=== PATIENT | female | born 1970 | race Caucasian/White ===

== ENCOUNTER 2018-02-12 06:10 | Observation (INO) | payer OTHER, SELFPAY ==
[2018-02-12] MEDS ORDERED: Nitroglycerin 2% Ointment 1 INCH/1 GM Packet ONE (06:28)
[2018-02-12 06:33] LABS: #Basophils 0.2 thou/uL (0.0-0.2); #Eosinphils 0.7 thou/uL (0.0-0.7); #Lymphocytes 4.9 thou/uL (1.20-3.40); #Monocytes 0.9 thou/uL (0.11-0.59); %Basophils 1.3 % (0.0-1.0); %Neutrophils 54.7 % (42.0-75.0); Hemoglobin 14.7 g/dL (12.0-16.0); Mean Corpuscular HGB CONC 32.3 g/dL (32.0-36.0); Mean Corpuscular Hemoglobin 28.9 pg (27.0-31.0); Mean Corpuscular Volume 89.5 fL (78.0-98.0); Mean Platelet Volume 6.7 fL (7.4-10.4); Platelet Count 406 thou/uL (130-400); RBC Distribution Width 13.3 % (11.5-14.5); Red Blood Cell (RBC) Count 5.08 mill/uL (4.20-5.40); White Blood Cell (WBC) Count 14.7 thou/uL (4.8-10.8)
[2018-02-12 06:48] LABS: ALT (SGPT) 14 U/L (8-55); AST (SGOT) 15 U/L (5-34); Alkaline Phosphatase 81 U/L (40-150); Anion Gap 16 mmol/L (10-20); BUN (Urea Nitrogen) 16 mg/dL (7.0-18.7); Bilirubin, Total 0.2 mg/dL (0.2-1.2); CK (CPK) 40 U/L (29-168); Calc. Creatinine Clearance 0 mL/min (70-130); Calcium 9.1 mg/dL (7.8-10.44); Carbon Dioxide 24 mmol/L (22-29); Chloride 102 mmol/L (98-107); Estimated GFR-MDRD 64; Globulin 3.7 g/dL (2.4-3.5); Glucose 157 mg/dL (70-105); Lipase 30 U/L (8-78); Magnesium 2.1 mg/dL (1.6-2.6); Protein, Total 7.7 g/dL (6.0-8.3); Sodium 138 mmol/L (136-145)
[2018-02-12 06:52] LABS: Troponin I 0.047 ng/mL (< 0.028)
[2018-02-12] MEDS ORDERED: Labetalol HCl 100 MG/20 ML VIAL ONE (07:05)
--- NOTE | 2018-02-12 07:42 | CT ---
CT ANGIOGRAM OF THE CHEST: HISTORY: Chest pain. COMPARISON: None. TECHNIQUE: CT angiogram of the chest is performed in the axial plane. Three-dimensional reformatted images are submitted for interpretation. FINDINGS: Adequate contrast opacification of the pulmonary arterial system to the level of the segmental arteri es. No filling defect to suggest thromboembolism. No mediastinal mass, lymphadenopathy, or hematoma. Heart size is within normal limits. No pericardi al effusion. Visualized aorta has a normal caliber. Trachea and central bronchi are apparent. No consolidation or masses. No pleural effusion or pneumo thorax. An 8 mm hypodensity in the spleen is too small to characterize. IMPRESSION: No evidence of pulmonary artery embolism to the level of the segmental artery. POS: DI
[2018-02-12 09:43] LABS: Troponin I 0.048 ng/mL (< 0.028)
[2018-02-12] MEDS ORDERED: Sodium Chloride 0.65% Nasal 44 ML BOT EA NARE PRN (10:27)
[2018-02-12] MEDS ORDERED: Dextrose 50% Abboject 50 ML SYRINGE SLOW IVP PRN (10:27)
[2018-02-12] MEDS ORDERED: Eucerin (Mineral Oil/Petrolatum,White) 30 gm Jar TOP PRN (10:27)
[2018-02-12] MEDS ORDERED: Dextrose 5% in Water 1,000 ML IV PRN (10:27)
[2018-02-12] MEDS ORDERED: Albuterol Sulfate 2.5 mg/3 ml Neb NEB PRN (10:27)
[2018-02-12] MEDS ORDERED: Acetaminophen 325 MG TAB PO PRN (10:27)
[2018-02-12] MEDS ORDERED: Zolpidem Tartrate 5 MG TAB PO PRN (10:27)
[2018-02-12] MEDS ORDERED: Ondansetron HCl/PF 4 MG/2 ML Vial IVP PRN (10:27)
[2018-02-12] MEDS ORDERED: Ondansetron ODT 4 MG TAB PO PRN (10:27)
[2018-02-12] MEDS ORDERED: HumaLOG 300 UNITS/3 ML VIAL SC PRN ×2 (10:27)
[2018-02-12] MEDS ORDERED: Chloraseptic Spray 180 ml Bottle PO PRN (10:27)
[2018-02-12] MEDS ORDERED: Famotidine 20 MG TAB PO SCH ×2 (10:27→21:00)
[2018-02-12] MEDS ORDERED: Artificial Tears 18 DROP/0.9 ML EA EYE PRN (10:27)
[2018-02-12] MEDS ORDERED: hydrALAZINE 20 MG/ML VIAL SLOW IVP PRN (10:27)
[2018-02-12] MEDS ORDERED: HYDROcodone/Acetaminophen 5/325 mg Tablet PO PRN (10:27)
[2018-02-12] MEDS ORDERED: Senokot 8.6 MG TAB PO PRN (10:27)
[2018-02-12] MEDS ORDERED: Loperamide HCl 2 MG CAP PO PRN (10:27)
[2018-02-12] MEDS ORDERED: Milk Of Magnesia 30 ML UDCUP PO PRN (10:27)
[2018-02-12] MEDS ORDERED: Mag-Al 1200 mg/1200 mg/30 ML UDCUP PO PRN (10:27)
[2018-02-12] MEDS ORDERED: Nitroglycerin 0.4 MG TAB (25 Tab Bottle) SL PRN (10:27)
[2018-02-12] MEDS ORDERED: Torsemide 20 MG TAB PO SCH (10:45)
[2018-02-12 10:55] VITALS: BMI 44.4
--- NOTE | 2018-02-12 10:58 | HP ---
PRIMARY CARE PHYSICIAN: Alfonso Aj D.O. REASON FOR ADMISSION: Chest pain. HISTORY OF PRESENT ILLNESS: A 47-year-old female who has underlying history of chronic systolic heart failure and cardiomyopathy with AICD in place, who came to emergency room with a complaint of chest pain. Patient reports that she woke up during nighttime with a Charley horse type of muscle pain in her neck. Subsequently, she was experiencing pain behind her shoulder blade as well as entire left upper extremity. She was feeling pressure sensation in chest area. She was feeling nausea and shortness of breath. She also had 1 time bowel movement which was loose. She was worried about heart attack and that is why she decided to come to emergency room for evaluation. The patient reports that she is also getting intermittently chest pain on the left side which is variable in intensity, duration, and no specific aggravating or relieving factor. The patient feels as if sometimes defibrillator shocked. She never had any palpitation, dizziness or syncope. She denies any orthopnea, PND or leg swelling. Patient reports that she was following Cardiology, but her tax commissioner moved to different hospital and since then she is no longer following Cardiology, but she is following [facility]. Patient denies any UTI symptoms. She denies any constipation, melena, hematochezia. She denies any fever or chills. She denies any cough or upper respiratory or lower respiratory symptoms. When she came to the emergency room, her blood pressure was 217/135. In the emergency room, CT angio dissection protocol was done which was negative for dissection as well as pulmonary embolism. Her troponin was slightly elevated. When I saw this patient in the emergency room, she was pain free. REVIEW OF SYSTEMS: The following complete review of systems was negative, unless otherwise mentioned in the HPI or below: Constitutional: Weight loss or gain, ability to conduct usual activities. Skin: Rash, itching. Eyes: Double vision, pain. ENT/Mouth: Nose bleeding, neck stiffness, pain, tenderness. Cardiovascular: Palpitations, dyspnea on exertion, orthopnea. Respiratory: Shortness of breath, wheezing, cough, hemoptysis, fever or night sweats. Gastrointestinal: Poor appetite, abdominal pain, heartburn, nausea, vomiting, constipation, or diarrhea. Genitourinary: Urgency, frequency, dysuria, nocturia. Musculoskeletal: Pain, swelling. Neurologic/Psychiatric: Anxiety, depression. Allergy/Immunologic: Skin rash, bleeding tendency. Please see my HPI for pertinent positive and negative. All other review of systems reviewed and negative except as mentioned in the HPI. ALLERGIES: LISINOPRIL and SULFA DRUGS. CURRENT HOME MEDICATIONS: Levothyroxine 200 mcg p.o. daily, levothyroxine 50 mcg p.o. daily, Coreg 25 mg twice daily, potassium chloride one tablet daily, Singulair 10 mg daily, aspirin 81 mg p.o. daily, metformin 500 mg p.o. b.i.d., aldactone 25 mg p.o. daily, torsemide 20 mg p.o. daily, Entresto two tablets twice daily, Zoloft 200 mg p.o. daily. PAST MEDICAL HISTORY: Chronic systolic heart failure with defibrillator, nonischemic cardiomyopathy, hypertension, obesity, Graves disease, history of thyroid irradiation and subsequently iatrogenic hypothyroidism, history of myocardial infarction in 2008 , dyslipidemia, mild intermittent asthma, borderline diabetes. PAST SURGICAL HISTORY: Pacemaker/defibrillator placement, thyroidectomy, radioiodine therapy, bladder suspension, sinus surgery, laparoscopic surgery of ovary, hysterectomy. Cardiac catheterization in 2007 showed normal coronaries. PAST PSYCHIATRIC HISTORY: Anxiety and depression. SOCIAL HISTORY: Patient is smoking about 5 cigarettes on a daily basis. She drinks alcohol socially every week. She denies any other illicit drug abuse. FAMILY HISTORY: Positive for heart disease. No strong family history of cancer or stroke. Father of [place] by age of 56. Mother had kidney cancer. EMERGENCY ROOM COURSE: Patient has received labetalol 20 mg IV push, aspirin 324 mg, nitropatch. PHYSICAL EXAMINATION: VITAL SIGNS: On arrival, blood pressure 217/135, pulse 82, subsequently blood pressure 185/110, respiratory rate 16, temperature 97.9, saturation 99% on room air, weight 124.7 kilograms. GENERAL: Patient is currently alert, awake, hypertensive, no obvious acute distress. HEENT: Normocephalic, atraumatic. Eyes: Pupils round, reactive to light. Extraocular muscle intact. ENT: Oropharynx within normal limits. Moist mucous membranes, no oral lesion, no pharyngeal erythema, no exudate. NECK: Supple, no JVD, no thyromegaly, no carotid bruit, no jugular venous distention. LUNGS: Clear to auscultation without any rhonchi or rales. CARDIAC: S1, S2 regular. No murmur, no gallop, no rub. ABDOMEN: Obesity present. Bowel sounds present, nontender, nondistended. No organomegaly, no mass, no suprapubic tenderness. BACK: Unremarkable, no CVA tenderness. EXTREMITIES: Upper extremity passive movement of all joints are normal. Lower extremities: No edema. Good distal pulsation, no calf tenderness. SKIN: No skin rash. HEMATOLOGICAL: No lymphadenopathy. PSYCHIATRIC: Normal affect. SIGNIFICANT LABORATORY DATA: EKG showing pacemaker rhythm. CT angiography negative for pulmonary embolism. CT angio negative for any pulmonary embolism. CBC: WBC 14.7, hemoglobin 14.7, and platelet 406. Sodium 138, potassium 4.0, chloride 102, carbon dioxide 24, BUN 16, creatinine 0.94, glucose 157, calcium 9.1, magnesium 2.1. LFT: AST 15 , ALT 14, alkaline phosphatase 51, albumin 4.0, lipase 30. CK 40, CK-MB 1.0. Troponin 0.047. BNP less than 10. ASSESSMENT AND PLAN: 1. Chest pain. Patient's chest pain description is atypical. She has elevated troponin which is likely related with demand ischemia from uncontrolled hypertension on admission. Currently, patient is chest pain free. Her EKG is nondiagnostic. At this point, we will keep this patient on telemetry floor. We have ruled out dissection and pulmonary embolism with CT angiography. The patient will need serial cardiac enzyme monitoring. If troponin remains stable or downward trend, then we will consider doing pharmacological stress test for further evaluation. We will obtain echocardiography to assess ejection fraction and other structural abnormality. Meanwhile, we will continue with the nitropatch q.8 hourly, aspirin 81 mg p.o. daily. We will hold on Coreg because of we are planning to do stress test. We will monitor on telemetry floor. 2. Elevated troponin, indeterminant range, most likely related with demand ischemia from high blood pressure on admission. 3. Chronic systolic heart failure. The patient is euvolemic. The patient has underlying history of nonischemic cardiomyopathy and she has AICD in place. The patient is following [facility] outpatient basis. We will continue Entresto, aldactone, torsemide as per home dosage. We will obtain echocardiography to assess ejection fraction and other structural abnormality. 4. Hypothyroidism, iatrogenic after treatment for Graves disease. Continue levothyroxine 200 mcg p.o. daily and Cytomel 50 mcg p.o. daily, check TSH. 5. Mild intermittent asthma. Continue Singulair 10 mg p.o. daily and Ventolin nebulization q.6 hourly p.r.n. 6. Anxiety and depression. Continue Zoloft 200 mg p.o. daily. 7. Morbid obesity. Dietary education given, weight loss education given. Healthy lifestyle measures discussed with the patient. 8. Hypertensive urgency. Currently well controlled. We will continue with the nitropatch q.8 hourly along with the patient's blood pressure medication. 9. Deep venous thrombosis prophylaxis not needed because we are expecting discharge in 24 hours. Gastrointestinal prophylaxis, Pepcid 20 mg p.o. b.i.d. History of AICD pacemaker in place. The patient is feeling intermittent shock- like sensation and that is why we will do AICD interrogation. DISPOSITION: Plan based on clinical course. We are expecting patient's stay in hospital 24 hours, the patient has elevated leukocytosis and that is why we will check urinalysis as well. Plan of care extensively discussed with the patient in detail. JOAQUIND
[2018-02-12] MEDS ORDERED: Liothyronine Sodium 25 MCG TAB PO SCH (11:00)
[2018-02-12] MEDS ORDERED: Sacubitril 49 MG/Valsartan 51 MG TABLET PO SCH (11:00)
[2018-02-12] MEDS ORDERED: ISOVUE-370 76%-LOCM 1 ML ONE (11:10)
[2018-02-12 11:22] LABS: Cardiac Risk 5.7 (Less than 4.5)
[2018-02-12 12:56] LABS: Troponin I 0.042 ng/mL (< 0.028)
[2018-02-12] MEDS ORDERED: Nitroglycerin 2% Ointment 1 INCH/1 GM Packet TOP SCH (14:00)
[2018-02-12 15:38] VITALS: TEMP 97.5
[2018-02-12 17:21] VITALS: BP 168/83
--- NOTE | 2018-02-12 18:28 | CON ---
DATE OF CONSULTATION: 02/12/2018 REASON FOR CONSULTATION: Chest pain. HISTORY OF PRESENT ILLNESS: Mrs. Perdue is a very pleasant 47-year-old white female who comes to the hospital for chest pain. She actually did not have any chest pain. She was at home, got woken up by severe neck spasm on the left side. The pain was on the base of her skull and went from there to her upper back and then into her left arm and she felt some tingling of her left arm. She got worried as she knows that in the past, she has been told that a heart attack can happen with pain on the left arm, so she decided to come in for evaluation. On initial evaluation, her blood pressure was in the 200s/150s range. She was admitted, treated for pain and for blood pressure. She is feeling much better now. She also tells me that when she woke up she had a lot of diarrhea. She now tells me that her youngest daughter is having a lot of diarrhea as well, so she thinks she might have caught something. PAST MEDICAL HISTORY: 1. Nonischemic cardiomyopathy with an EF of 20%-25% in the past. The last echo was back in 04/2016 and she had an EF at that time of 60%, normalized. She has been followed up with Dr. Rivera in the past, but since he left, she has only been seen Elsa at the heart failure clinic. 2. Hypothyroidism. 3. Hypertension. 4. Type 2 diabetes. 5. Graves disease. 7. Hyperlipidemia. 8. Mild intermittent asthma. PAST SURGICAL HISTORY: 1. Pacemaker/AICD placement. 2. Thyroidectomy. 3. Radioiodine therapy. 4. Bladder suspension. 5. Sinus surgery. 6. Laparoscopic surgery of ovaries. 7. Hysterectomy. 8. Cardiac catheterization, 2007 showing normal coronaries. SOCIAL HISTORY: Smokes about 5 cigarettes a day, drinks alcohol only socially once a week. No drug use. FAMILY HISTORY: Father of an PA at age 56. Mother with kidney malignancy. REVIEW OF SYSTEMS: Twelve point review of system is done, it is all negative unless stated in the history of present illness. OUTPATIENT MEDICATIONS: Include; 1. Levothyroxine 250 mcg a day. 2. Coreg 25 mg twice a day. 3. Singulair. 4. Aspirin 81 a day. 5. Metformin 500 mg b.i.d. 6. Aldactone 25 mg daily. 7. Torsemide 20 mg b.i.d. 8. Entresto twice a day. 9. Zoloft. ALLERGIES: LISINOPRIL and SULFA DRUGS. PHYSICAL EXAMINATION: VITAL SIGNS: Temperature 97.5, pulse 74, respiration rate 12, satting 96% on room air, blood pressure 188/98. GENERAL: Awake, alert, and oriented x3, in no distress. HEENT: Normocephalic, atraumatic. NECK: Supple. LUNGS: Lungs are clear. CARDIOVASCULAR: S1, S2, no S3, S4, no murmurs. ABDOMEN: Soft, positive bowel sounds. EXTREMITIES: No edema. SKIN: Warm and dry. LABORATORY WORK: Reviewed. CBC with a white count of 14, hemoglobin 14, hematocrit 45, platelet count of 406. Chemistries were unremarkable except for glucose of 157. Her troponin was 0.04, 0.04 and then 0.04. BNP was undetectable. Triglycerides of 197, cholesterol 267, LDL of 181, HDL of 47. The TSH was extremely high at 43.9, lipase was 30. EKG was reviewed. Imaging was reviewed. ASSESSMENT: 1. Hypertensive emergency. 2. Neck spasm. 3. History of nonischemic cardiomyopathy with normalized ejection fraction. 4. Noncompliance. 5. Severe hypothyroidism. PLAN: 1. I suspect a lot of her problems are related to noncompliance. Most likely her blood pressure has been skyrocketing recently and this is evidenced by the extremely high TSH level which would suggest that she has not been taking any of her thyroid medications. I reviewed her echocardiogram that was done earlier today and it showed normal EF with normal wall motion suggestive that this was not an acute coronary syndrome. Her symptoms are most likely related to hypertensive emergency. She is doing better now. I would restart on her home medications and have her follow up with me in 1 month and she already has an appointment with the [facility] in 2 weeks. 2. She should be okay for discharge today. She would like to go home as well. I told her that she might need a heart catheterization in the future and she tell me that she was not going to let us do on this time, I do think she needs one for now. Thank you for letting us participate in the care of your patient. We will sign off. Please call with any questions. NARENDRA
--- NOTE | 2018-02-12 18:36 | DIS ---
DATE OF ADMISSION: 02/12/2018 at 8:14 a.m. DATE OF DISCHARGE: 02/12/2018 at 6:00 p.m. PRIMARY CARE PHYSICIAN: Dr. Alfonso Aj. DISCHARGE DISPOSITION: Home. PRIMARY DISCHARGE DIAGNOSIS: Chest pain, ruled out acute coronary syndrome. SECONDARY DISCHARGE DIAGNOSES: Chronic systolic heart failure, nonischemic cardiomyopathy, tobacco a buse, chronic kidney disease stage 3, dyslipidemia, hypothyroidism, morbid obesity with BMI 44, mild intermittent asthma, anxiety, and depression. PRIMARY PROCEDURE/OPERATION: None. RADIOLOGICAL INVESTIGATION: CT angio negative for PE. Echocardiography showed ejection fraction 55% -60%, diastolic dysfunction. SIGNIFICANT LABORATORY DATA: Troponin was indeterminant range. LDL 181. TSH 43.92. DISCHARGE MEDICATIONS: Coreg 25 mg p.o. b.i.d., Cytomel 50 mcg p.o. daily, metformin 500 mg p.o. b.i .d., Singulair 10 mg p.o. at bedtime, potassium 1 tablet p.o. daily, Entresto one tablet p.o. daily, Zoloft 200 mg p.o. daily, Aldactone 25 mg p.o. daily, torsemide 20 mg p.o. daily, Ecotrin 81 mg p.o. daily, Synthroid 200 mcg p.o. daily, Ventolin HFA 2 puffs q.4 hourly p.r.n., Lipitor 40 mg p.o. at be dtime. CONTRAINDICATIONS: None. CODE STATUS: FULL CODE. INPATIENT CONSULTANTS: Dr. Robbins was consulted while in hospital. TEST RESULTS PENDING ON DISCHARGE: None. ALLERGIES: LISINOPRIL and SULFA DRUGS. DISCHARGE PLAN: Post hospital, the patient will follow up with primary care physician and cardiologi . [facility] COURSE: The patient was admitted for chest pain. Her chest pain description was atypical. Please see my HPI for further detail. There was initial plan for a stress test, but Dr. Robbins gifty mmended not to do stress test. He evaluated this patient, had echocardiography done which showed nor mal EF. She had indeterminate troponin which was related with high blood pressure on admission. The patient will continue her thyroid medication and I advised to follow up with primary care physician. I added Lipitor for her high cholesterol. Dietary instruction given. Healthy lifestyle measures d iscussed with the patient. The patient is admitted and discharged on the same day.
[2018-02-12] MEDS ORDERED: Montelukast Sodium 10 mg Tablet PO SCH (21:00)
[2018-02-13] MEDS ORDERED: Levothyroxine Sodium 100 MCG TAB PO SCH (06:00)
[2018-02-13] MEDS ORDERED: Spironolactone 25 MG TAB PO SCH (08:00)
[2018-02-13] MEDS ORDERED: Aspirin 81 mg Enteric Coated Tablet PO SCH (09:00)
[2018-02-13] MEDS ORDERED: Sacubitril 49 MG/Valsartan 51 MG TABLET PO SCH (09:00)
[2018-02-13] MEDS ORDERED: Torsemide 20 MG TAB PO SCH (09:00)
[2018-02-13] MEDS ORDERED: Liothyronine Sodium 25 MCG TAB PO SCH (09:00)
== END 2018-02-12 18:09 | disposition home or self-care (01) ==
LOC: ERS 06:10 → 2SW 08:14
PROVIDERS: ADMIT Internal Medicine; ATTEND Internal Medicine
DX: R07.89 Other chest pain (principal); I16.1 Hypertensive emergency; I13.0 Hypertensive heart and chronic kidney disease with heart failure and stage 1 through stage 4 chronic kidney disease, or unspecified chronic kidney disease; I50.22 Chronic systolic (congestive) heart failure; N18.3 Chronic kidney disease, stage 3 (moderate); E78.5 Hyperlipidemia, unspecified; E03.9 Hypothyroidism, unspecified; E66.01 Morbid (severe) obesity due to excess calories; J45.909 Unspecified asthma, uncomplicated; F41.8 Other specified anxiety disorders; E11.22 Type 2 diabetes mellitus with diabetic chronic kidney disease; F17.210 Nicotine dependence, cigarettes, uncomplicated; Z68.41 Body mass index [BMI] 40.0-44.9, adult; Z79.84 Long term (current) use of oral hypoglycemic drugs; Z79.899 Other long term (current) drug therapy; Z79.82 Long term (current) use of aspirin
CPT/HCPCS: 36415; 36416; 71275; 80053; 80061; 82553; 83690; 83735; 83880; 84443; 84484; 85025; 93005; 93306; 96374; G0378

== ENCOUNTER 2019-06-10 12:32 | Outpatient (CLI) | payer OTHER, SELFPAY | END 2019-06-10 12:33 | disposition home or self-care (01) | LOC: ULT 12:32 | PROVIDERS: ATTEND Internal Medicine | DX: I50.22 Chronic systolic (congestive) heart failure (principal); I08.1 Rheumatic disorders of both mitral and tricuspid valves | CPT/HCPCS: 93306 ==

== ENCOUNTER 2020-04-29 11:07 | Inpatient (IN) | payer SELFPAY ==
[2020-04-29 11:48] LABS: Actual Bicarbonate (HCO3a) 13.6 mEq/L (22-28); Analyzer IN Cardio ER; Base Excess (BEa) -15.5 mEq/L (-2.0 to +3.0); CO2 Tension 44.3 mmHg (35.0-45.0); Calcium, Ionized (arterial) 1.32 mmol/L (1.12-1.30); Hemoglobin (Hb) 14.1 g/dL (12.0-16.0); O2 Tension (PaO2), arterial 80.7 mmHg (80.0-100.0); Potassium - ABG Lab 4.11 mmol/L (3.70-5.30)
[2020-04-29 11:52] LABS: ALV-art Gradient 363.025 mmHg (0-20); Puncture Site RRA; pH, Arterial 7.11 (7.35-7.45)
[2020-04-29] MEDS ORDERED: niCARdipine 20MG In NaCl 20 MG/200 ML BAG ONE (11:56)
[2020-04-29 12:12] LABS: Hemoglobin 14.7 g/dL (12.0-16.0); Mean Corpuscular HGB CONC 31.4 g/dL (32.0-36.0); Mean Corpuscular Hemoglobin 30.6 pg (27.0-31.0); Mean Corpuscular Volume 97.5 fL (78.0-98.0); Mean Platelet Volume 7.2 fL (7.4-10.4); Platelet Count 181 thou/uL (130-400); RBC Distribution Width 12.8 % (11.5-14.5); Red Blood Cell (RBC) Count 4.83 mill/uL (4.20-5.40); White Blood Cell (WBC) Count 26.9 thou/uL (4.8-10.8)
[2020-04-29 12:13] LABS: Bilirubin Negative (Negative); Blood, Urine Trace (Negative); Clarity Clear (Clear); Glucose, Urine (Dipstick) 200 mg/dL (Negative); Ketone, Urine Negative (Negative); Leukocyte Negative Leu/uL (Negative); Nitrite Negative (Negative); Protein, Urine (Dipstick) 100 mg/dL (Neg-Trace); RBC/HPF 0-3 HPF (0-3); Specific Gravity, Urine 1.016 (1.002-1.036); Squamous Epithelial 0-3 HPF (0-3); Urobilinogen Normal mg/dL (Less than 2); pH, Urine 5.5 (5.0-9.0)
[2020-04-29 12:18] LABS: Bacteria/HPF 1+ HPF (None Seen)
[2020-04-29 12:18] LABS: ALT (SGPT) 44 U/L (8-55); AST (SGOT) 47 U/L (5-34); Albumin 3.4 g/dL (3.5-5.0); Alkaline Phosphatase 82 U/L (40-110); Anion Gap 27 mmol/L (10-20); BUN (Urea Nitrogen) 17 mg/dL (7.0-18.7); Bilirubin, Total 0.3 mg/dL (0.2-1.2); CK (CPK) 72 U/L (29-168); Calc. Creatinine Clearance 0 mL/min (70-130); Calcium 8.7 mg/dL (7.8-10.44); Carbon Dioxide 14 mmol/L (22-29); Chloride 98 mmol/L (98-107); Globulin 3.7 g/dL (2.4-3.5); Glucose 476 mg/dL (70-105); Lipase 51 U/L (8-78); Protein, Total 7.1 g/dL (6.0-8.3); Sodium 135 mmol/L (136-145)
[2020-04-29 12:20] LABS: Amphetamine Detected (NotDetected); Barbiturates Screen Not Detected (NotDetected); Benzodiazepine Screen Not Detected (NotDetected); Cocaine Metabolite Screen Not Detected (NotDetected); Medtox Control Line Valid? VALID (VALID); Medtox Reader # READER 4; Methadone Not Detected (NotDetected); Methamphetamine Detected (NotDetected); Opiate Screen Not Detected (NotDetected); Oxycodone Screen Not Detected (NotDetected); Phencyclidine (PCP) Not Detected (NotDetected); THC/Cannabinoid Screen Not Detected (NotDetected); Tricyclic Screen Not Detected (NotDetected)
[2020-04-29] MEDS ORDERED: EPINEPHrine 1 MG/ML AMP ONE (12:21)
[2020-04-29] MEDS ORDERED: EPINEPHrine 1 MG/10 ML Abboject SYRINGE ONE ×3 (12:21→13:25)
[2020-04-29 12:24] LABS: Band 13 % (5-11); Eosinophils 2 % (0-10); Lymphocytes 23 % (21-51); MDiff Complete? YES; Monocytes 3 % (0-10); Neutrophil 47 % (42-75); Platelet Morphology Comment Appears Adequate; Polychromasia SLIGHT = 2-3 cells (100X) (0-2/hpf); Reactive Lymphocytes 12 % (0-10)
[2020-04-29] MEDS ORDERED: Norepinephrine 8 MG/0.9% NS 250 ML ONE (12:36)
--- NOTE | 2020-04-29 12:57 | RAD ---
PORTABLE CHEST: HISTORY: CPR. COMPARISON: 06/22/2015. FINDINGS/IMPRESSION: ET tube and NG tube noted. Pacemaker and AICD leads again noted. Cardiomegaly with vascular congestion. No pneumothorax or consolidation. Hazy infiltrates not exclu ded but may be on the basis of congestion and edema. POS: AGW
[2020-04-29 13:04] LABS: Actual Bicarbonate (HCO3a) 17.3 mEq/L (22-28); Analyzer IN Cardio ER; Base Excess (BEa) -11.4 mEq/L (-2.0 to +3.0); Calcium, Ionized (arterial) 1.36 mmol/L (1.12-1.30); Hemoglobin (Hb) 16.3 g/dL (12.0-16.0); Potassium - ABG Lab 3.67 mmol/L (3.70-5.30); pH, Arterial 7.17 (7.35-7.45)
[2020-04-29 13:05] LABS: Puncture Site RRA
[2020-04-29] MEDS ORDERED: Calcium Chloride 1 GM/10 ML Abboject SYRINGE ONE (13:24)
[2020-04-29 13:33] LABS: SARS-CoV-2 NAA Rapid Test Not Detected (NotDetected)
[2020-04-29] MEDS ORDERED: Iopamidol-370 76% 500 ML 1 ML ONE (14:29)
[2020-04-29 14:32] LABS: INR-International Normal Ratio 1.3; Prothrombin Time 16.6 sec (12.0-14.7)
[2020-04-29 14:33] LABS: PTT 48.2 sec (22.9-36.1)
--- NOTE | 2020-04-29 14:34 | CT ---
EXAM: Brain CTWithout contrast: HISTORY: Found unresponsive, CPR performed COMPARISON: None FINDINGS: There is loss of english-white matter junction region bilaterally evidence for some diffuse edema intrac ranially. No focal mass or midline shift. Very extensive primarily subarachnoid hemorrhage. There is some minimal linear hemorrhage overlying t he right frontal lobe floor of the anterior cranial fossa probably subarachnoid in origin. Fluid and secretions in the posterior nasopharynx. Sinuses and mastoids are clear of acute process. IMPRESSION: Very extensive hemorrhage, primarily subarachnoid. There is some linear hemorrhage noted along the fl oor of the right anterior cranial fossa which could potentially not be subarachnoid. No significant mass effect or midline shift. Evidence for loss of english-white matter junction evidence for diffuse brain edema.
[2020-04-29] MEDS ORDERED: Acetaminophen 325 MG TAB PO PRN (14:43)
[2020-04-29] MEDS ORDERED: Sodium Chloride 0.9% 1,000 ML IV SCH ×2 (14:45→15:30)
[2020-04-29 15:24] LABS: Lactic Acid 9.9 mmol/L (0.5-2.2)
[2020-04-29] MEDS ORDERED: HumaLOG 300 UNITS/3 ML VIAL SC PRN (15:27)
[2020-04-29] MEDS ORDERED: Dextrose 50% Abboject 50 ML SYRINGE SLOW IVP PRN (15:27)
[2020-04-29] MEDS ORDERED: Dextrose 5% in Water 1,000 ML IV PRN (15:27)
[2020-04-29] MEDS ORDERED: Ventilator Sedation Protocol 1 EACH FS SCH (15:30)
[2020-04-29] MEDS ORDERED: niCARdipine 25 MG in Sodium Chloride 0.9% 250 ML 250 ML IVPB PRN (15:31)
--- NOTE | 2020-04-29 16:06 | CON ---
DATE OF CONSULTATION: 04/29/2020 CONSULTING PHYSICIAN: Charlieist . REASON FOR CONSULTATION: Acute respiratory failure related to cardiopulmonary arrest and subarachnoid hemorrhage. HISTORY OF THE PRESENT ILLNESS: History was obtained by talking with the patient's family - specifically with her mother and aunt, who are at the bedside. The patient apparently awoke early this morning and complained of not being able to sleep. She got into a disagreement with her daughter about dirty dishes. She then returned to bed and soon after called out because of acute headache, she then collapsed. She was intubated in the field by paramedics. When she presented to this facility, she was found to have a large subarachnoid hemorrhage with loss of english-white matter differentiation. I believe she had at least 2 periods of cardiac arrest, requiring CPR. PAST MEDICAL HISTORY: 1. Hypertension. 2. Hypothyroidism. 3. Nonischemic cardiomyopathy with EF of 20% to 25% back in 2018. 4. Diabetes mellitus, type 2. 5. Graves disease. 6. Hyperlipidemia. 7. Asthma. PAST SURGICAL HISTORY: 1. She has had an AICD and pacemaker placed. 2. Thyroidectomy. 3. Radioiodine ablated therapy. 4. Bladder suspension. 5. Sinus surgery. 6. Laparoscopic removal of her ovaries. 7. Hysterectomy. 8. Cardiac catheterization. SOCIAL HISTORY: Apparently, has a history of tobacco use. She has also drank alcohol in the past. FAMILY MEDICAL HISTORY: Remarkable for coronary artery disease. MEDICATIONS: Prior to admission, not available for review at this time. ALLERGIES: LISINOPRIL AND SULFA DRUGS. REVIEW OF SYSTEMS: Not obtainable because the patient is currently intubated on mechanical ventilation. PHYSICAL EXAMINATION: VITAL SIGNS: Temperature 96.4, blood pressure 114/81 on a Levophed drip with O2 saturation 100% on mechanical ventilation. Pulse 101. NEUROLOGICALLY: The patient is obtunded. Her pupils are 7 mm and nonreactive to light. She has no oculocephalic reflex. She has no gag reflex. She does not withdrawal with her arms, but does withdrawal very slightly with both feet. HEENT: Otherwise unremarkable except for an intubated patient. NECK: No adenopathy or JVD. LUNGS: Clear to auscultation. CARDIAC: S1, S2. Regular. ABDOMEN: Obese, soft, nontender. She has a left femoral central line. EXTREMITIES: No clubbing, cyanosis, or edema. LABORATORY DATA: White blood cell count 26.9, hematocrit 47, platelet count 181 with 47% neutrophils, 13% bands. INR is 1.3, PTT 48.2, D-dimer greater than 20. The pH 7.17, pCO2 of 49, PO2 of 55 on SIMV rate 20, tidal volume 450, PEEP 10, pressure support 10, FiO2 100%. Sodium 135, potassium 4, chloride 98, CO2 of 14, BUN 17, creatinine 1.4, glucose 476, lactate 12.5, troponin 0.64. Tox screen positive for amphetamines and methamphetamines. COVID-19 rapid test was negative. She has glucosuria and proteinuria. Her head CT shows a large subarachnoid hemorrhage. Chest x-ray demonstrates an AICD/pacemaker in the left upper quadrant. She has cardiomegaly. She has significant pulmonary edema. ASSESSMENT: 1. This is a 49-year-old female who experiences subarachnoid hemorrhage, resulting in cardiopulmonary arrest. While she is not technically brain , she certainly is close based on neurologic exam. 2. Severe metabolic acidosis - mainly lactic in nature. 3. Blood sugars, out of control. 4. Substance abuse. 5. Probable aspiration pneumonitis and given duration of CPR. RECOMMENDATIONS: Generalized supportive care. Neurosurgery has been consulted, but I do not think there is anything they could do in this situation. We will give the patient Levophed and IV fluids as needed to keep her blood pressure up. Her neurologic exam will be reassessed tomorrow. Code status was discussed with the family; apparently, the daughter needs time. Job ID: [id number]
[2020-04-29 16:51] VITALS: BMI 42.5
--- NOTE | 2020-04-29 16:56 | CT ---
EXAM: CT ANGIOGRAM OF THE HEAD AND NECK INDICATION: Patient with CPR in progress. Subarachnoid hemorrhage. COMPARISON: None TECHNIQUE: CT angiogram of the head and neck are performed in the axial plane. Three-dimensional refo rmatted images are submitted for interpretation. FINDINGS: CTA OF THE HEAD WITH AND WITHOUT CONTRAST: POSTCONTRAST CT OF BRAIN: Limited evaluation due to the presence of extensive subarachnoid hemorrhage. There does appear to be some loss of cortical english-white matter differentiation along with sulcal effacement implying global cerebral edema. No midline shift. Basilar cisterns are Postcontrast soft tissue neck CT: Aerodigestive tract:Limited evaluation due to the presence of nasogastric and endotracheal tube. Sinuses: Adequate aeration of the sinuses and mastoid air cells. Orbits: Bilateral ocular lenses are appropriately located. Both globes are intact. Retrobulbar fat is preserved. Symmetric attenuation the optic nerves and ocular rectus muscles. Salivary glands:Symmetric attenuation of the parotid and symmetrical glands Thyroid gland: Not appreciated. Correlate for previous surgery or treatment Lymph nodes: No evidence of lymphadenopathy by size criteria. Paraspinal muscles: There is abnormal air attenuation along the left supraspinatus muscles. Correlate clinically. Cervical spine:Vertebral body height is maintained. No fracture. No significant central canal stenosi s or significant neural foraminal narrowing. Limited evaluation by technique. Upper mediastinum and lung apices: Opacification of the visualized lung apices which may represent at electasis, aspiration or pneumonia. CTA OF THE NECK WITH CONTRAST: Aorta: Appropriate enhancement and luminal diameter. Right carotid artery: Appropriate enhancement and luminal diameter of the common carotid artery, stern tid bifurcation, proximal/mid internal card artery. There is abrupt caliber change with intimal wall thickening involving the distal cervical internal carotid artery. Left carotid: Appropriate enhancement and luminal diameter common carotid artery, carotid bifurcation , proximal/mid internal carotid artery. There is intimal wall thickening with possible intraluminal filling defect involving the distal cervical internal carotid artery. Subclavian arteries:Symmetric and patent Vertebral arteries:Patent throughout their course in the neck. Dominant right vertebral artery CTA OF THE BRAIN: Intracranial internal carotid arteries:Absence of contrast enhancement involving both petrous, cavern ous sinus, paraclinoid internal carotid arteries. Anterior circulation: No evidence of enhancement with regards to the anterior circulation Intracranial vertebral arteries: Absence of enhancement. Posterior circulation: Absence of enhancement in regards to the basilar artery and P1 segments IMPRESSION: 1. Absence of enhancement at the level of [place] which may in part be due to significant in tracranial pressure. There is loss of english-white matter differentiation and sulcal effacement implying extensive cerebral edema. 2. There is irregular intimal thickening involving the distal internal carotid arteries bilaterally. Correlate for possible bilateral carotid artery dissection. Possibility of a intraluminal thrombus in the distal left internal carotid artery cannot be entirely excluded. 3. Nonspecific subcutaneous emphysema involving the right supraspinatus muscle. Results study discussed with Sue patient's nurse 11 04/29/2020 4:46 PM Code CR
[2020-04-29] MEDS ORDERED: Lorazepam 2 MG/ML VIAL SLOW IVP PRN (17:00)
[2020-04-29] MEDS ORDERED: Fentanyl BOLUS 250 ML IVPB PRN (17:00)
[2020-04-29] MEDS ORDERED: Propofol BOLUS 1,000 MG/100 ML VIAL IV PRN (17:00)
[2020-04-29] MEDS ORDERED: Propofol 1,000 MG/100 ML VIAL IV PRN (17:00)
[2020-04-29] MEDS ORDERED: fentaNYL Citrate/PF 2,000 MCG in Sodium Chloride 0.9% 60 ML IV SCH (17:00)
[2020-04-29] MEDS ORDERED: DISCONTINUE PREVIOUS NARCOTIC PAIN MEDICATIONS AND BENZODIAZEPINES FS SCH (17:00)
[2020-04-29] MEDS ORDERED: Morphine 2 MG/ML VIAL SLOW IVP PRN (17:00)
[2020-04-29 17:09] LABS: Glucose 345 mg/dL (70-105)
--- NOTE | 2020-04-29 17:24 | HP ---
CONSULTATIONS ON THE CASE: 1. Dr. Evangelist Schmitz, Pulmonary Critical Care. 2. Dr. Jorge Henderson, Cardiology. 3. CHEPE Johnson, Neurosurgery. REASON FOR ADMISSION: Cardiac arrest and respiratory arrest. HISTORY OF PRESENT ILLNESS: This is a 49-year-old morbidly obese female, who was found unresponsive at home and 911 was called. She was intubated en route to the emergency room at [facility]. The patient on initial evaluation in the ER was unresponsive and asystole episode occurred during this process, where the patient had CPR resulting in revival of her pulse along with close monitoring. The patient eventually was revived with a pulse. At this point of time, Neurosurgery was consulted in regard to the patient's subarachnoid hemorrhage as reviewed on the CT of the head, which was done stat on admission. The patient does have extensive cardiac history, for which she takes medications at home along with having a pacemaker placement done in the remote past. The patient was apparently started on Levophed for maintenance of her blood pressure, and eventually, ICU admission was requested. I reviewed and evaluated the patient at bedside in the emergency room. The patient at this point of time is noncommunicative secondary to her intubated status, not on any sedation at this point of time, does have fixed dilated pupils. Hemodynamically, her heart rate is around 80 per minute, normal sinus rhythm, though it looked paced. Further review of the patient's diagnostics in the ER showed evidence of methamphetamines in the urine drug screen and further review with the patient's family does confirm that the patient does abuse methamphetamines, but unknowingly though. The patient does have extensive cardiac history as mentioned above, though with complaints on medications according to the patient's family members. History has been obtained from the patient's daughters as well as family friend. An echocardiogram done in May 2019 shows evidence of 50% to 60% ejection fraction. The patient, per previous records, has history of chronic systolic heart failure with cardiomyopathy, but according to the patient's family members, she has a pacemaker in place. Past medical history includes hypothyroidism, morbid obesity, uncontrolled blood pressure. No other significant history has been noted with the patient's family members except that she was found unresponsive at home brought into the emergency room at [facility]. PAST MEDICAL HISTORY: 1. Hypothyroidism. 2. Morbid obesity. 3. History of cardiomyopathy. 4. History of coronary artery disease. 5. Methamphetamine drug abuse. 6. Chronic systolic congestive heart failure with a defibrillator. 7. Nonischemic cardiomyopathy. 8. Benign essential hypertension. 9. History of Graves disease. 10. Thyroid radiation with eventual iatrogenic hypothyroidism. 11. History of myocardial infarction in 2008. 12. Dyslipidemia. 13. Bronchial asthma. PAST SURGICAL HISTORY: 1. History of pacemaker defibrillator placement. 2. Thyroidectomy. 3. Radioiodine therapy. 4. Bladder suspension surgery. 5. History of sinus surgery. 6. History of laparoscopic surgery of ovary and hysterectomy. 7. Cardiac cath in 2007 with normal coronaries. PAST PSYCHIATRIC HISTORY: Includes anxiety and depression. SOCIAL HISTORY: The patient smokes half a pack of cigarettes a day. Social drinking. Extensive drug abuse, methamphetamines have been suspected. FAMILY HISTORY: Strong family history of coronary artery disease without any premature incidents. Mother had kidney cancer. REVIEW OF SYSTEMS: Could not be done secondary to the patient's intubated status and noncommunicative situation. PHYSICAL EXAMINATION: GENERAL: This is a 49-year-old morbidly obese female, who is intubated, noncommunicative. VITAL SIGNS: Heart rate of 80 per minute, respiratory rate of 20 per minute, saturation of 98% with a FiO2 of 100% and a PEEP of 5. CVS: S1 and S2 paced. CHEST: Bilateral air entry present. Basilar rhonchi noted. ABDOMEN: Soft. Bowel sounds are present. EXTREMITIES: No cyanosis or edema noted. Other systems could not be examined secondary to the patient's status of intubation. DIAGNOSTICS: PT is 16.6, INR is 1.3, PTT is 48.2. ABG; pH 7.17, pCO2 is 55, PO2 is 82. Lactic acid is 12.5. Troponin is 0.064. Urinalysis has been reviewed. Drug screen shows evidence of methamphetamine is detected. SARS-CoV-2 PCR RT negative. IMAGING STUDIES: CT of the brain, very extensive hemorrhage, primarily subarachnoid. There is some linear hemorrhage noted along the floor of the right anterior cranial foci, which could potentially not be subarachnoid. No significant mass effect or midline shift. Evidence for loss of english white matter junction. Evidence for diffuse brain edema noted. ASSESSMENT: 1. Acute hypoxemic respiratory failure with cardiac arrest, status post intubation during en route to the emergency room. 2. Extensive subarachnoid hemorrhage without any midline shift or herniation yet. 3. Coronary artery disease with history of nonischemic cardiomyopathy and history of automatic implantable cardioverter-defibrillator pacemaker placement. 4. Morbid obesity. 5. Methamphetamine drug abuse. 6. Benign essential hypertension. 7. Hypothyroidism with history of thyroidectomy for Graves disease. 8. Coronary artery disease with history of cardiac cath in 2007. PLAN: I discussed in detail of the diagnosis, treatment, and followup with the patient's family members. Educated and explained about the prognosis, which is very poor. I have consulted Neurosurgery, Cardiology, and Pulmonary Critical Care Services at this point of time, though prognosis at this point of time remains futile. I have re-educated the patient's family members in regard to the current hospitalization course and monitoring. Advanced directives currently are full code, but the patient might benefit in transitioning to palliative hospice care basing on prognosis. We will await official consultation and evaluation by Neurosurgery, Cardiology, and Pulmonary Critical Care in regard to more specifics. The whole Critical Care evaluation including review in the emergency room took me more than 50 minutes. Prognosis, very poor. Job ID: [id number]
--- NOTE | 2020-04-29 19:03 | CON ---
DATE OF CONSULTATION: 04/29/2020 HISTORY OF PRESENT ILLNESS: Ms. Perdue is a 49-year-old female who incidentally had an argument with her daughter this morning. She suffered a sudden onset of headache and neck pain, and her family noticed an altered mental status with the patient. On transport, EMS witnessed cardiac arrest at approximately 10:30 a.m. CPR was initiated at that time and the patient was intubated in the field using 125 mg of ketamine and [address] of the head showed a very extensive subarachnoid hemorrhage. There is no significant mass effect or midline shift. CTA of the head has been ordered but is pending. Her aunt was at bedside in the emergency room. REVIEW OF SYSTEMS: Noncontributory. MEDICATIONS: Unable to obtain. 1. Albuterol 90 mcg. 2. Carvedilol 25 mg. 3. Furosemide 40 mg. 4. Levothyroxine 200 mcg. 5. Metformin 500 mg. 6. Singulair 10 mg. 7. Potassium chloride 10 mEq. 8. Sertraline 100 mg. 9. Acetaminophen 500 mg. 10. Entresto 97/103 mg. 11. Lipitor 20 mg. ALLERGIES: LISINOPRIL, ANAPHYLAXIS; SULFA, ANAPHYLAXIS. SOCIAL HISTORY: Aunt tells me she is a smoker. She occasionally drinks alcohol. Methamphetamine was found in her urine in the emergency room. FAMILY: Mother, lung cancer, five years ago. Father, heart disease. Younger brother, [place]. Older brother, open heart. PAST MEDICAL HISTORY: Diabetes, hypertension, pacemaker, hyperlipidemia, hypothyroidism. PHYSICAL EXAMINATION: VITAL SIGNS: Blood pressure 118/78, heart rate 91, respiratory rate 28, and temperature 96.4. HEENT: Examination of head normal, atraumatic, and normocephalic. Eyes, pupils fixed and dilated, nonreactive to light. NEURO: The patient is nonresponsive. There is no corneal reflex. There was no eye movement. There are no paralytics to hinder the neuro exam. IMAGING: Head CT showed a very extensive subarachnoid hemorrhage. CTA of the head shows no flow of the contrast into the intracranial space, likely brain . LABORATORY DATA: WBC 26.9, RBC 4.83, hemoglobin 14.7, hematocrit 47, and platelets 181. PT 16.6, INR 1.3, PTT 48.2. Sodium 135. Toxicology, methamphetamines were detected. ASSESSMENT: 1. Subarachnoid hemorrhage. 2. Cardiac arrest. PLAN: The CTA showed no blood flow into the head at all. She is no longer alive. No neurosurgical intervention at this time. Job ID: [id number] MTDD
[2020-04-29] MEDS: Piperacillin/Tazobactam 3.375 GM in Sodium Chloride 0.9% 100 ML IVPB SCH ×2 (19:16→22:06)
[2020-04-29] MEDS: Sodium Chloride 0.9% 1,000 ML IV SCH (19:17)
[2020-04-29 20:34] LABS: Lactic Acid 3.4 mmol/L (0.5-2.2)
[2020-04-29 20:47] LABS: ALT (SGPT) 127 U/L (8-55); AST (SGOT) 130 U/L (5-34); Albumin 3.7 g/dL (3.5-5.0); Alkaline Phosphatase 75 U/L (40-110); Anion Gap 19 mmol/L (10-20); BUN (Urea Nitrogen) 26 mg/dL (7.0-18.7); Bilirubin, Total 0.5 mg/dL (0.2-1.2); Calc. Creatinine Clearance 88 mL/min (70-130); Calcium 10.2 mg/dL (7.8-10.44); Carbon Dioxide 23 mmol/L (22-29); Chloride 106 mmol/L (98-107); Globulin 3.6 g/dL (2.4-3.5); Glucose 150 mg/dL (70-105); Protein, Total 7.3 g/dL (6.0-8.3); Sodium 144 mmol/L (136-145)
[2020-04-29 20:50] LABS: Actual Bicarbonate (HCO3a) 24.1 mEq/L (22-28); Base Excess (BEa) 3.2 mEq/L (-2.0 to +3.0); CO2 Tension 27.7 mmHg (35.0-45.0); Calcium, Ionized (arterial) 1.27 mmol/L (1.12-1.30); Carboxyhemoglobin (COHb) 0.9 gm% (0.0-3.0); Potassium - ABG Lab 3.84 mmol/L (3.70-5.30)
[2020-04-29 20:53] LABS: pH, Arterial 7.56 (7.35-7.45)
[2020-04-29 20:54] LABS: Puncture Site RRA
[2020-04-29 20:56] LABS: ALV-art Gradient 192.575 mmHg (0-20)
[2020-04-29] MEDS ORDERED: Famotidine/PF 20 mg/2ml Vial SLOW IVP SCH (21:00)
[2020-04-30 01:02] LABS: Glucose 147 mg/dL (70-105)
[2020-04-30] MEDS: Norepinephrine 8 MG/0.9% NS 250 ML IVPB SCH ×2 (01:33→05:35)
[2020-04-30 04:46] LABS: ALT (SGPT) 111 U/L (8-55); AST (SGOT) 100 U/L (5-34); Albumin 3.6 g/dL (3.5-5.0); Alkaline Phosphatase 70 U/L (40-110); Anion Gap 18 mmol/L (10-20); BUN (Urea Nitrogen) 27 mg/dL (7.0-18.7); Bilirubin, Total 0.6 mg/dL (0.2-1.2); Calc. Creatinine Clearance 87 mL/min (70-130); Calcium 9.8 mg/dL (7.8-10.44); Carbon Dioxide 24 mmol/L (22-29); Chloride 112 mmol/L (98-107); Globulin 3.6 g/dL (2.4-3.5); Glucose 163 mg/dL (70-105); Protein, Total 7.2 g/dL (6.0-8.3); Sodium 150 mmol/L (136-145)
[2020-04-30 04:54] LABS: #Basophils 0.2 thou/uL (0.0-0.2); #Eosinphils 0.1 thou/uL (0.0-0.7); #Lymphocytes 5.2 thou/uL (1.20-3.40); #Monocytes 1.6 thou/uL (0.11-0.59); #Neutrophils 12.6 thou/uL (1.40-6.50); %Basophils 0.8 % (0.0-1.0); %Eosinophils 0.6 % (0.0-10.0); %Lymphocytes 26.7 % (21.0-51.0); %Monocytes 7.9 % (0.0-10.0); %Neutrophils 64.1 % (42.0-75.0); Hemoglobin 15.4 g/dL (12.0-16.0); Mean Corpuscular HGB CONC 32.5 g/dL (32.0-36.0); Mean Corpuscular Hemoglobin 29.8 pg (27.0-31.0); Mean Corpuscular Volume 91.9 fL (78.0-98.0); Mean Platelet Volume 6.9 fL (7.4-10.4); Platelet Count 287 thou/uL (130-400); RBC Distribution Width 12.8 % (11.5-14.5); Red Blood Cell (RBC) Count 5.18 mill/uL (4.20-5.40); White Blood Cell (WBC) Count 19.6 thou/uL (4.8-10.8)
[2020-04-30] MEDS: Piperacillin/Tazobactam 3.375 GM in Sodium Chloride 0.9% 100 ML IVPB SCH ×2 (05:09→13:07)
[2020-04-30] MEDS ORDERED: Sodium Chloride 0.45% 1,000 ML IV SCH (05:45)
[2020-04-30] MEDS: Sodium Chloride 0.9% 1,000 ML IV SCH (06:39)
[2020-04-30 07:54] VITALS: BP 124/83
[2020-04-30 07:57] LABS: Actual Bicarbonate (HCO3a) 23.2 mEq/L (22-28); Base Excess (BEa) 0.9 mEq/L (-2.0 to +3.0); CO2 Tension 31.1 mmHg (35.0-45.0); Calcium, Ionized (arterial) 1.24 mmol/L (1.12-1.30); Carboxyhemoglobin (COHb) 0.9 gm% (0.0-3.0); Hemoglobin (Hb) 15.5 g/dL (12.0-16.0); Potassium - ABG Lab 3.85 mmol/L (3.70-5.30); pH, Arterial 7.49 (7.35-7.45)
[2020-04-30 07:58] LABS: Puncture Site RRA
[2020-04-30 07:59] LABS: ALV-art Gradient 311.925 mmHg (0-20)
[2020-04-30 08:08] VITALS: TEMP 98.1
--- NOTE | 2020-04-30 08:36 | PRG ---
DATE OF SERVICE: 04/30/2020 TIME SPENT: 35 minutes of critical care time. SUBJECTIVE: The patient remains intubated on mechanical ventilation. OBJECTIVE: VITAL SIGNS: Temperature 98.1, pulse 92, blood pressure 117/70, O2 saturation 100%. 24-hour intake 1527, output 2300. I do not see any profound amounts of diuresis over the last 12 hours. NEUROLOGICAL: She has fixed pupils. No oculocephalic reflex. No gag reflex. Does not follow commands. She has no spontaneous respirations on the ventilator. She was placed in the apnea mode on the ventilator for 60 seconds and had no respirations. She does, however, have lower extremity withdrawal reflex, which could just be a spinal reflex. HEENT: Otherwise unremarkable. NECK: No JVD. LUNGS: Clear anteriorly. CARDIOVASCULAR: S1, S2, regular. ABDOMEN: Soft. No hepatosplenomegaly. EXTREMITIES: No edema. LABORATORY DATA: ABG; pH 7.49, pCO2 of 31, pO2 of 77, on SIMV rate 20, tidal volume 500, PEEP 6, pressure support 10, and FiO2 of 60%. White blood cell count 19.6, hematocrit 47.6, and platelet count 287. Sodium 150, potassium 4, chloride 112, CO2 of 24, BUN 27, creatinine 1.5, glucose 163, AST 100, ALT 111. Chest x-ray shows clearing of bilateral infiltrates. ASSESSMENT: 1. Status post subarachnoid hemorrhage. 2. Prolonged cardiopulmonary arrest with evidence of severe anoxic brain injury and possible brain . PLAN: 1. Nuclear perfusion brain scan today to further evaluate for brain . 2. I have adjusted mechanical ventilation settings. 3. She has been put on half-normal saline because of the hypernatremia. 4. Discussed with family member at bedside. Job ID: [id number]
[2020-04-30] MEDS ORDERED: FLU VACC QS2020-21(6MOS UP)/PF 60 MCG/0.5 ML SYRINGE IM ONE (09:00)
[2020-04-30] MEDS ORDERED: Prevnar 13-Val Conj/PF 0.5 ML SYRINGE IM ONE (09:00)
[2020-04-30 09:24] LABS: Glucose 147 mg/dL (70-105)
--- NOTE | 2020-04-30 09:42 | RAD ---
PORTABLE CHEST: HISTORY: Pneumonia and CCU followup. COMPARISON: 04/29/2020. FINDINGS/IMPRESSION: The bilateral infiltrates are again seen. The upper lung infiltrates are less dense today which may signify some interval improvement. ET tube and NG tube unchanged. Pacemaker leads unchanged. POS: AGW
--- NOTE | 2020-04-30 13:16 | NM ---
NUCLEAR MEDICINE BRAIN SCAN FOR CEREBRAL BLOOD FLOW STUDY: The patient was given 37 mCi of Ceretec IV. Dynamic imaging of the brain obtained with delayed stati c images in all 3 planes. INDICATION: Diffuse subarachnoid hemorrhage with loss of english-white junction and evidence of diffuse increased in tracranial pressure on CT exams. FINDINGS: There is no activity seen within the brain on dynamic or delayed sequences. There is no evidence of cerebral circulation identified. IMPRESSION: No evidence of cerebral or cerebellar circulation. Findings are consistent with brain by nucle ar medicine criteria. POS: ELISABETH
[2020-04-30 13:17] LABS: Glucose 134 mg/dL (70-105)
--- NOTE | 2020-04-30 18:26 | PDOC.DS.DS ---
Provider - Provider Date of Admission: 04/29/20 14:43 Date of Discharge: 04/30/20 Admitting Provider: Mario Joshua MD Consultations: Pulmonary, Other (Neurosurgery) Primary Care Physician: [facility] Course - Hospital Course Hospital Course: Patient was 49-year-old female with cardiomyopathy, coronary artery disease and morbid obesity was brought in by EMS with unresponsiveness. Patient was intubated by EMS. She was found unresponsive and in asystole requiring prolonged CPR. CT scan of the brain in the emergency room was consistent with extensive subarachnoid hemorrhage with loss of english-white matter junction with diffuse brain edema. Patient was also started on pressors. Please refer to the history and physical for further details. The patient was admitted to the intensive care unit with above diagnosis. She continued to have fixed pupils without oculocephalic reflex or gag reflex. She was not following commands. There was no spontaneous respiration on the ventilator. She underwent nuclear perfusion scan that was consistent with brain . Patient was transferred for organ donation. Family was updated. Final diagnosis: Subarachnoid hemorrhage Prolonged cardiopulmonary arrest requiring mechanical ventilation and CPR Hypotension requiring pressors Lactic acidosis due to hypoperfusion Type II myocardial infarctionPOA NAMITA on CKD stage IIPOA Abnormal LFTs due to cardiac arrest Severe anoxic brain injury/brain Chronic systolic heart failure status post AICD due to nonischemic cardiomyopathy Coronary artery disease Morbid obesity with a BMI 42.7 Hypertension Hypothyroidism Dyslipidemia Methamphetamine abuse Resuscitation Status: 04/29/20 17:50 Resuscitation Status Routine Resuscitation Status: DNAR: NO Resuscitation Discussed with: Sami Montemayor (daughter) at bedside. - Labs Lab Results: 04/30/20 03:47 04/30/20 12:54 Abnormal Lab Results - Last 48 hrs 04/29/20 11:10: Sodium 135 L, Carbon Dioxide 14 L, Anion Gap 27 H, Creatinine 1.48 H, AST 47 H, Albumin 3.4 L, Globulin 3.7 H, Albumin/Globulin Ratio 0.9 L 04/29/20 11:10: WBC 26.9 H, MCHC 31.4 L, MPV 7.2 L, Band Neuts % (Manual) 13 H, Reactive Lymphs % 12 H 04/29/20 11:40: Bicarbonate Actual 13.6 L, ABG pH 7.11 L*, ABG O2 Sat (Measured) 91.2 L, ABG O2 Content 17.9 L, ABG Base Excess -15.5 L, ABG Oxyhemoglobin 89.8 L, ABG Deoxyhemoglobin 8.7 H, A-a O2 Gradient 363.025 H, Ionized Calcium 1.32 H 04/29/20 11:40: Lactic Acid 12.5 H* 04/29/20 11:40: Troponin I 0.064 H 04/29/20 11:52: Urine Protein 100 A, Urine Glucose (UA) 200 A, Urine Blood Trace A, Urine WBC 4-6 A, Urine Bacteria 1+ A 04/29/20 11:52: Ur Amphetamines Screen Detected H, U Methamphetamines Scrn Detected H 04/29/20 12:35: D-Dimer Greater than 20.00 H 04/29/20 12:35: PT 16.6 H, APTT 48.2 H 04/29/20 12:51: Bicarbonate Actual 17.3 L, ABG pH 7.17 L*, ABG pCO2 49.0 H, ABG pO2 55.0 L*, ABG O2 Sat (Measured) 82.2 L*, ABG Base Excess -11.4 L, ABG He matocrit 48.0 H, ABG Hemoglobin 16.3 H, ABG Oxyhemoglobin 81.0 L, ABG Deoxyhemoglobin 17.5 H, A-a O2 Gradient 596.750 H, Potassium 3.67 L, Ionized Calcium 1.36 H 04/29/20 14:41: Lactic Acid 9.9 H* 04/29/20 20:05: BUN 26 H, Creatinine 1.52 H, AST 130 H, ALT 127 H, Globulin 3.6 H, Albumin/Globulin Ratio 1.0 L 04/29/20 20:05: Lactic Acid 3.4 H 04/29/20 20:40: ABG pH 7.56 H*, ABG pCO2 27.7 L, ABG pO2 58.0 L*, ABG Base Excess 3.2 H, ABG Oxyhemoglobin 92.9 L, ABG Deoxyhemoglobin 5.9 H, A-a O2 Gradient 192.575 H, Chloride 110 H 04/30/20 03:47: Chloride 112 H, Sodium 150 H, BUN 27 H, Creatinine 1.53 H, AST 100 H, ALT 111 H, Globulin 3.6 H, Albumin/Globulin Ratio 1.0 L 04/30/20 03:47: WBC 19.6 H, Hct 47.6 H, MPV 6.9 L, Neutrophils # 12.6 H, Lymphocytes # 5.2 H, Monocytes # 1.6 H 04/30/20 07:50: ABG pH 7.49 H, ABG pCO2 31.1 L, ABG pO2 77.0 L, ABG Deoxyhemoglobin 4.0 H, A-a O2 Gradient 311.925 H, Chloride 116 H, Sodium 150 H Microbiology - Entire Visit 04/29/20 11:52 Urine portillo catheter Urine Culture - Preliminary NO GROWTH AT 24 HOURS - Physical Exam Vitals: Vital Signs (12 hours) Temp Pulse Resp BP Pulse Ox 04/30/20 12:00 14 04/30/20 10:35 96 04/30/20 10:00 14 04/30/20 08:00 14 100 04/30/20 07:49 98.1 F 04/30/20 07:48 90 124/83 Weight Weight 272 lb 7.861 oz Most Recent Monitor Data Heart Rate from ECG 96 NIBP 93/66 NIBP BP-Mean 75 Respiration from ECG 15 SpO2 99 Physical Exam: The patient was seen and examined on the day of discharge. Plan - Discharge Medications Home Medications: Medication Instructions Recorded Confirmed Type Carvedilol [Coreg] 25 mg PO BID 12/30/12 02/12/18 History Liothyronine Sodium [Cytomel] 50 mcg PO DAILY 12/30/12 02/12/18 History Spironolactone [Aldactone] 25 mg PO DAILY 12/30/12 02/12/18 History Levothyroxine Sodium [Synthroid] 200 mcg PO DAILY #30 tablet 12/31/12 02/12/18 Rx Aspirin [Ecotrin Low Strength] 81 mg PO HS #0 tab 06/03/13 02/12/18 Rx Ventolin HFA Inhaler 2 puff INH Q4H PRN #0 inh 06/03/13 02/12/18 Rx Potassium 99 mg PO DAILY 06/18/13 02/12/18 History Montelukast Sodium [Singulair] 10 mg PO HS 06/15/15 02/12/18 History Atorvastatin Calcium [Lipitor] 40 mg PO DAILY #30 tab 09/20/18 Rx Sacubitril/Valsartan [Entresto 97 1 each PO DAILY 02/12/18 02/12/18 History mg-103 mg Tablet] Sertraline HCl 200 mg PO DAILY 02/12/18 02/12/18 History Torsemide [Demadex] 20 mg PO DAILY 02/12/18 02/12/18 History metFORMIN [Glucophage] 500 mg PO BID-WM 02/12/18 02/12/18 History Allergies: lisinopril Allergy (Verified 08/13/19 15:45) ANAPHYLAXSIS Sulfa (Sulfonamide Antibiotics) Allergy (Verified 08/13/19 15:45) - Follow up Plan Referrals: [facility] [Primary Care Provider] - Disposition: Quality - Care Measures CORE MEASURES:: N/A
--- NOTE | 2020-05-02 11:23 | CT ---
EXAM: CT ANGIOGRAM OF THE HEAD AND NECK INDICATION: Patient with CPR in progress. Subarachnoid hemorrhage. COMPARISON: None TECHNIQUE: CT angiogram of the head and neck are performed in the axial plane. Three-dimensional refo rmatted images are submitted for interpretation. FINDINGS: CTA OF THE HEAD WITH AND WITHOUT CONTRAST: POSTCONTRAST CT OF BRAIN: Limited evaluation due to the presence of extensive subarachnoid hemorrhage. There does appear to be some loss of cortical english-white matter differentiation along with sulcal effacement implying global cerebral edema. No midline shift. Basilar cisterns are Postcontrast soft tissue neck CT: Aerodigestive tract:Limited evaluation due to the presence of nasogastric and endotracheal tube. Sinuses: Adequate aeration of the sinuses and mastoid air cells. Orbits: Bilateral ocular lenses are appropriately located. Both globes are intact. Retrobulbar fat is preserved. Symmetric attenuation the optic nerves and ocular rectus muscles. Salivary glands:Symmetric attenuation of the parotid and symmetrical glands Thyroid gland: Not appreciated. Correlate for previous surgery or treatment Lymph nodes: No evidence of lymphadenopathy by size criteria. Paraspinal muscles: There is abnormal air attenuation along the left supraspinatus muscles. Correlate clinically. Cervical spine:Vertebral body height is maintained. No fracture. No significant central canal stenosi s or significant neural foraminal narrowing. Limited evaluation by technique. Upper mediastinum and lung apices: Opacification of the visualized lung apices which may represent at electasis, aspiration or pneumonia. CTA OF THE NECK WITH CONTRAST: Aorta: Appropriate enhancement and luminal diameter. Right carotid artery: Appropriate enhancement and luminal diameter of the common carotid artery, stern tid bifurcation, proximal/mid internal card artery. There is abrupt caliber change with intimal wall thickening involving the distal cervical internal carotid artery. Left carotid: Appropriate enhancement and luminal diameter common carotid artery, carotid bifurcation , proximal/mid internal carotid artery. There is intimal wall thickening with possible intraluminal filling defect involving the distal cervical internal carotid artery. Subclavian arteries:Symmetric and patent Vertebral arteries:Patent throughout their course in the neck. Dominant right vertebral artery CTA OF THE BRAIN: Intracranial internal carotid arteries:Absence of contrast enhancement involving both petrous, cavern ous sinus, paraclinoid internal carotid arteries. Anterior circulation: No evidence of enhancement with regards to the anterior circulation Intracranial vertebral arteries: Absence of enhancement. Posterior circulation: Absence of enhancement in regards to the basilar artery and P1 segments IMPRESSION: 1. Absence of enhancement at the level of [place] which may in part be due to significant in tracranial pressure. There is loss of english-white matter differentiation and sulcal effacement implying extensive cerebral edema. 2. There is irregular intimal thickening involving the distal internal carotid arteries bilaterally. Correlate for possible bilateral carotid artery dissection. Possibility of a intraluminal thrombus in the distal left internal carotid artery cannot be entirely excluded. 3. Nonspecific subcutaneous emphysema involving the right supraspinatus muscle. Results study discussed with Sue patient's nurse 11 04/29/2020 4:46 PM Code CR Transcribed Date/Time: 05/02/2020 11:22 AM
--- NOTE | 2020-05-13 14:38 | EKG ---
Test Reason : Blood Pressure : / mmHG Vent. Rate : 113 BPM Atrial Rate : 113 BPM P-R Int : 096 ms QRS Dur : 176 ms QT Int : 428 ms P-R-T Axes : 060 097 265 degrees QTc Int : 587 ms Atrial-sensed ventricular-paced rhythm Abnormal ECG Confirmed by TERRENCE ESPITIA ([id number]), primer expeditor and drier KANNAN CEE ([id number]) on 05/13/2020 2:37:54 PM Referred By: Confirmed By:TERRENCE ESPITIA
== END 2020-04-30 13:07 | disposition expired | DRG 64 ==
LOC: ERS 11:07 → CCU 14:43
PROVIDERS: ADMIT Student in an Organized Health Care Education/Training Program; ATTEND Student in an Organized Health Care Education/Training Program
PROC: 5A1935Z Respiratory Ventilation, Less than 24 Consecutive Hours (ICD-10-PCS; principal; 2020-04-29)
PROC: 06HY33Z Insertion of Infusion Device into Lower Vein, Percutaneous Approach (ICD-10-PCS; 2020-04-29)
PROC: 3E043XZ Introduction of Vasopressor into Central Vein, Percutaneous Approach (ICD-10-PCS; 2020-04-29)
PROC: 5A12012 Performance of Cardiac Output, Single, Manual (ICD-10-PCS; 2020-04-29)
PROC: 5A2204Z Restoration of Cardiac Rhythm, Single (ICD-10-PCS; 2020-04-29)
DX: I60.9 Nontraumatic subarachnoid hemorrhage, unspecified (principal); G93.6 Cerebral edema; J96.01 Acute respiratory failure with hypoxia; I21.A1 Myocardial infarction type 2; I50.22 Chronic systolic (congestive) heart failure; I42.8 Other cardiomyopathies; G93.1 Anoxic brain damage, not elsewhere classified; Z68.41 Body mass index [BMI] 40.0-44.9, adult; N17.9 Acute kidney failure, unspecified; I13.0 Hypertensive heart and chronic kidney disease with heart failure and stage 1 through stage 4 chronic kidney disease, or unspecified chronic kidney disease; E87.2 Acidosis; Z66 Do not resuscitate; Z23 Encounter for immunization; Z20.828 Contact with and (suspected) exposure to other viral communicable diseases; I46.9 Cardiac arrest, cause unspecified; R29.740 NIHSS score 40; E66.01 Morbid (severe) obesity due to excess calories; I25.10 Atherosclerotic heart disease of native coronary artery without angina pectoris; E78.5 Hyperlipidemia, unspecified; J45.909 Unspecified asthma, uncomplicated; F17.210 Nicotine dependence, cigarettes, uncomplicated; E03.9 Hypothyroidism, unspecified; E11.22 Type 2 diabetes mellitus with diabetic chronic kidney disease; I95.9 Hypotension, unspecified; N18.2 Chronic kidney disease, stage 2 (mild); F15.10 Other stimulant abuse, uncomplicated; F32.9 Major depressive disorder, single episode, unspecified; F41.9 Anxiety disorder, unspecified; Z88.2 Allergy status to sulfonamides; Z88.8 Allergy status to other drugs, medicaments and biological substances; Z79.899 Other long term (current) drug therapy; Z79.01 Long term (current) use of anticoagulants; Z79.84 Long term (current) use of oral hypoglycemic drugs; Z90.710 Acquired absence of both cervix and uterus; Z95.810 Presence of automatic (implantable) cardiac defibrillator; I25.2 Old myocardial infarction; Z82.49 Family history of ischemic heart disease and other diseases of the circulatory system; Z79.890 Hormone replacement therapy
CPT/HCPCS: 36415; 36556; 36600; 51702; 70450; 70496; 70498; 71045; 78610; 80053; 80306; 81003; 81015; 82550; 82553; 82805; 83605; 83690; 83880; 84484; 85025; 85379; 85610; 85730; 87086; 92950; 93005; 94002; 94003; 96365; 96366; 96375; 99292; A9521; J0171; J0282; J2543; J3490; Q9967; S0028; U0002

== ENCOUNTER 2020-04-30 13:07 | Day surgery (SDC) | payer OTHER ==
[~2020-04-30 13:07] MED LIST: Iopamidol-370 76% 500 ML 1 ML ONE
[2020-04-30] MEDS ORDERED: Levothyroxine Sodium 400 MCG in Sodium Chloride 0.9% 100 ML IVPB SCH ×2 (14:45→19:15)
[2020-04-30] MEDS ORDERED: Hydrocortisone Sod Succ/PF 500 mg/4 ml Vial SLOW IVP SCH (15:00)
[2020-04-30] MEDS ORDERED: Refresh Lacri-lube Opth Oint 7 GM TUBE FS SCH (15:00)
[2020-04-30 15:52] VITALS: BMI 42.5
[2020-04-30] MEDS: Piperacillin/Tazobactam 3.375 GM in Sodium Chloride 0.9% 100 ML IVPB SCH ×2 (15:59→20:44)
[2020-04-30] MEDS: Phytonadione 10 MG in Sodium Chloride 0.9% 50 ML IVPB SCH ×2 (16:39→19:46)
[2020-04-30] MEDS ORDERED: Sodium Chloride 0.45% 1,000 ML IV SCH (16:45)
[2020-04-30] MEDS ORDERED: Albumin 5% 0 ML ONE (16:52)
[2020-04-30 17:32] LABS: #Basophils 0.2 thou/uL (0.0-0.2); #Eosinphils 0.5 thou/uL (0.0-0.7); #Lymphocytes 4.3 thou/uL (1.20-3.40); #Monocytes 1.8 thou/uL (0.11-0.59); #Neutrophils 13.2 thou/uL (1.40-6.50); %Basophils 0.9 % (0.0-1.0); %Eosinophils 2.3 % (0.0-10.0); %Lymphocytes 21.8 % (21.0-51.0); %Monocytes 8.8 % (0.0-10.0); %Neutrophils 66.3 % (42.0-75.0); Hemoglobin 14.3 g/dL (12.0-16.0); Mean Corpuscular Hemoglobin 30.9 pg (27.0-31.0); Mean Corpuscular Volume 93.5 fL (78.0-98.0); Mean Platelet Volume 7.2 fL (7.4-10.4); Platelet Count 200 thou/uL (130-400); RBC Distribution Width 12.9 % (11.5-14.5); Red Blood Cell (RBC) Count 4.64 mill/uL (4.20-5.40); White Blood Cell (WBC) Count 19.9 thou/uL (4.8-10.8)
[2020-04-30 17:39] LABS: INR-International Normal Ratio 1.2; PTT 32.8 sec (22.9-36.1); Prothrombin Time 15.2 sec (12.0-14.7)
[2020-04-30 17:51] LABS: Lactic Acid 1.3 mmol/L (0.5-2.2)
[2020-04-30 17:56] LABS: ALT (SGPT) 80 U/L (8-55); AST (SGOT) 72 U/L (5-34); Albumin 3.3 g/dL (3.5-5.0); Alkaline Phosphatase 64 U/L (40-110); Anion Gap 16 mmol/L (10-20); BUN (Urea Nitrogen) 28 mg/dL (7.0-18.7); Bilirubin, Total 0.6 mg/dL (0.2-1.2); Calc. Creatinine Clearance 80 mL/min (70-130); Calcium 8.9 mg/dL (7.8-10.44); Carbon Dioxide 23 mmol/L (22-29); Chloride 120 mmol/L (98-107); Globulin 3.3 g/dL (2.4-3.5); Glucose 157 mg/dL (70-105); Phosphorus 2.6 mg/dL (2.3-4.7); Potassium 3.5 mmol/L (3.5-5.1); Protein, Total 6.6 g/dL (6.0-8.3); Sodium 155 mmol/L (136-145)
--- NOTE | 2020-04-30 18:04 | CT ---
EXAM: CT ABDOMEN HISTORY: Organ donor workup. COMPARISON: None. Procedure: Multiple contiguous axial images were obtained and a CT of the abdomen and pelvis with IV contrast. C oronal reformats were performed. FINDINGS: Lower Chest: Bibasilar pleural effusions with bilateral lower lobe consolidation due to atelectasis, pneumonia or aspiration. Vessels: Normal caliber aorta. Minimal sclerosis. Heart: Upper normal heart size. Evidence of previous pacemaker wire placement/defibrillator wire plac ement. Abdomen: Portal vein:Patent Gallbladder: Multiple gallstones. No evidence of cholecystitis. Liver: No abnormal enhancing masses. No cystic lesions. Pancreas: within normal limits. Spleen: Nonspecific hypodensity in the spleen measuring approximately 1 cm. Adrenals: within normal limits. Kidneys: Symmetric enhancement. No obstructive uropathy. There is a small hypodense focus in the uppe r pole the right kidney, measuring 1.0 cm. Lesion cannot be further characterize but is statistically favored to be a cyst. Currently the attenuation coefficient is 27 Hounsfield units. Min imal scarring of the left upper pole cortex. 1 mm cortically based calcification is noted in the left upper pole cortex. Peritoneum: No ascites or free air, no fluid collection. Bowel: Limited evaluation of the alimentary canal by the lack of oral contrast. No evidence of bowel obstruction. Mesentery and Retroperitoneum: No enlarged mesenteric or retroperitoneal lymph nodes. Abdominal Wall: within normal limits. Bones: within normal limits. IMPRESSION: 1. No abnormal enhancing lesions in the liver. No evidence of hepatic cysts 2. Symmetric enhancement kidneys. Minimal scarring in the left upper pole cortex with adjacent cortic al calcification. Hypodensity in the right renal cortex upper pole may represent a cyst. Catheterization is incomplete.
[2020-04-30 18:19] VITALS: BP 113/57
[2020-04-30] MEDS ORDERED: Norepinephrine 8 MG/0.9% NS 250 ML IVPB SCH (18:30)
[2020-04-30 18:34] LABS: Actual Bicarbonate (HCO3a) 23.9 mEq/L (22-28); Base Excess (BEa) -1.5 mEq/L (-2.0 to +3.0); CO2 Tension 42.7 mmHg (35.0-45.0); Calcium, Ionized (arterial) 1.21 mmol/L (1.12-1.30); Carboxyhemoglobin (COHb) 0.6 gm% (0.0-3.0); Hemoglobin (Hb) 13.1 g/dL (12.0-16.0); O2 Tension (PaO2), arterial 95.9 mmHg (80.0-100.0); Potassium - ABG Lab 3.39 mmol/L (3.70-5.30); pH, Arterial 7.37 (7.35-7.45)
[2020-04-30 18:36] LABS: ALV-art Gradient 563.725 mmHg (0-20); Puncture Site Other Site
[2020-04-30] MEDS ORDERED: Vasopressin 20 UNIT, Admixture Fee 1 EACH in Sodium Chloride 0.9% 50 ML IV SCH (18:45)
[2020-04-30 19:16] LABS: Bacteria/HPF None Seen HPF (None Seen); RBC/HPF 0-3 HPF (0-3); Squamous Epithelial 0-3 HPF (0-3); WBC/HPF 0-3 HPF (0-3)
[2020-04-30 19:47] LABS: Clarity Clear (Clear)
[2020-04-30 19:48] LABS: Bilirubin Negative (Negative); Blood, Urine Negative (Negative); Glucose, Urine (Dipstick) Negative (Negative); Ketone, Urine Negative (Negative); Leukocyte Negative Leu/uL (Negative); Nitrite Negative (Negative); Protein, Urine (Dipstick) Negative (Neg-Trace); Specific Gravity, Urine 1.011 (1.002-1.036); Urobilinogen Normal mg/dL (Less than 2)
[2020-04-30 19:53] VITALS: TEMP 98.2
[2020-04-30 21:50] LABS: Actual Bicarbonate (HCO3a) 20.4 mEq/L (22-28); Base Excess (BEa) -4.6 mEq/L (-2.0 to +3.0); CO2 Tension 37.7 mmHg (35.0-45.0); Calcium, Ionized (arterial) 1.26 mmol/L (1.12-1.30); Carboxyhemoglobin (COHb) 0.8 gm% (0.0-3.0); Hemoglobin (Hb) 12.8 g/dL (12.0-16.0); Potassium - ABG Lab 3.49 mmol/L (3.70-5.30); pH, Arterial 7.35 (7.35-7.45)
[2020-04-30 21:52] LABS: ALV-art Gradient 572.875 mmHg (0-20); Puncture Site Other Site
[2020-04-30] MEDS ORDERED: Hydrocortisone Sod Succ/PF 100 mg/2 ml Vial IVP SCH (22:00)
[2020-04-30 22:43] LABS: #Eosinphils 0.1 thou/uL (0.0-0.7); #Lymphocytes 1.4 thou/uL (1.20-3.40); #Monocytes 0.6 thou/uL (0.11-0.59); #Neutrophils 13.2 thou/uL (1.40-6.50); %Basophils 0.3 % (0.0-1.0); %Eosinophils 0.4 % (0.0-10.0); %Lymphocytes 8.9 % (21.0-51.0); %Monocytes 3.9 % (0.0-10.0); %Neutrophils 86.5 % (42.0-75.0); Hemoglobin 12.6 g/dL (12.0-16.0); Mean Corpuscular HGB CONC 32.8 g/dL (32.0-36.0); Mean Corpuscular Hemoglobin 30.8 pg (27.0-31.0); Mean Corpuscular Volume 94.1 fL (78.0-98.0); Mean Platelet Volume 7.3 fL (7.4-10.4); Platelet Count 167 thou/uL (130-400); RBC Distribution Width 12.9 % (11.5-14.5); Red Blood Cell (RBC) Count 4.09 mill/uL (4.20-5.40); White Blood Cell (WBC) Count 15.2 thou/uL (4.8-10.8)
[2020-04-30 23:19] LABS: ALT (SGPT) 64 U/L (8-55); AST (SGOT) 60 U/L (5-34); Albumin 3.8 g/dL (3.5-5.0); Alkaline Phosphatase 55 U/L (40-110); Anion Gap 14 mmol/L (10-20); BUN (Urea Nitrogen) 23 mg/dL (7.0-18.7); Bilirubin, Direct 0.4 mg/dL (0.1-0.3); Bilirubin, Total 0.7 mg/dL (0.2-1.2); Calc. Creatinine Clearance 93 mL/min (70-130); Calcium 9.1 mg/dL (7.8-10.44); Carbon Dioxide 20 mmol/L (22-29); Chloride 124 mmol/L (98-107); Globulin 2.7 g/dL (2.4-3.5); Glucose 180 mg/dL (70-105); Potassium 3.3 mmol/L (3.5-5.1); Protein, Total 6.5 g/dL (6.0-8.3); Sodium 155 mmol/L (136-145)
== END 2020-04-30 22:20 | disposition expired ==
LOC: SDC 13:07
DX: K80.20 Calculus of gallbladder without cholecystitis without obstruction; Z88.2 Allergy status to sulfonamides; Z88.8 Allergy status to other drugs, medicaments and biological substances
CPT/HCPCS: 74160; 81015; 82248; 82805; 82977; 83605; 83735; 84100; 85384; 94002; J1720; J2543; J3430; J3490; P9045; Q9967